=== PATIENT | female | born 1975 | race Caucasian/White ===

== ENCOUNTER 2017-09-27 16:42 | Inpatient (IN) | payer OTHER ==
[~2017-09-27] VITALS: Ht 160 cm; Wt 46.3 kg
--- NOTE | 2017-09-27 16:55 | NUR ---
AAOX3, C/O SOB, STARTED FLU-LIKE SYMPTOMS 5 DAYS AGO NOW C/O SOB. SKIN IS WARM AND DRY. VOO0=080% ON RA. DR JADE AT FOR EVAL.
[2017-09-27] MEDS ORDERED: IPRATROPIUM NEB FS 0.5 MG/2.5 ML AMPUL.NEB ONE (16:57)
[2017-09-27] MEDS ORDERED: ALBUTEROL FS 2.5 MG/3 ML VIAL.NEB ONE (16:57)
[2017-09-27] MEDS ORDERED: ALBUTEROL FS 2.5 MG/3 ML VIAL.NEB NEB ONE (17:00)
[2017-09-27] MEDS ORDERED: IPRATROPIUM NEB FS 0.5 MG/2.5 ML AMPUL.NEB NEB ONE (17:00)
[2017-09-27] MEDS ORDERED: IV NS 0.9% 1,000 ML IV ONE (17:00)
[2017-09-27 17:26] LABS: BASOPHILS % (AUTO) 0.2 % (0.0-2.0); EOSINOPHILS % (AUTO) 0.2 % (0.0-6.0); HEMATOCRIT 29 % (33-45); HEMOGLOBIN 9.7 g/dL (11.5-14.8); LYMPHOCYTES # (AUTO) 1.1 /CMM (0.8-4.8); LYMPHOCYTES % (AUTO) 4.7 % (20.0-44.0); MEAN CORPUSCULAR HEMOGLOBIN 31 PG (26.0-33.0); MEAN CORPUSCULAR HGB CONC 33 g/dl (31.0-36.0); MEAN CORPUSCULAR VOLUME 95 fL (82-100); MONOCYTES # (AUTO) 0.7 /CMM (0.1-1.30); MONOCYTES % (AUTO) 3.2 % (2.0-12.0); NEUTROPHILS # (AUTO) 20.4 /CMM (1.8-8.9); NEUTROPHILS % (AUTO) 91.7 % (43.0-81.0); PLATELET COUNT (AUTO) 681 /CMM (150-450); RDW COEFFICIENT OF VARIATION 15.5 (11.5-15.0); RED BLOOD CELL COUNT(AUTO) 3.11 MIL/uL (4.0-5.2); WHITE BLOOD COUNT (AUTO) 22.3 K/uL (4.3-11.0)
[2017-09-27 17:30] LABS: CALCIUM, SERUM 8.6 mg/dL (8.5-10.1); CREATININE 0.8 mg/dL (0.6-1.3); POTASSIUM 3.5 mmol/L (3.5-5.1)
[2017-09-27 18:16] LABS: BAND % (MANUAL) 7 % (0.0-5.0); LYMPHOCYTES % (MANUAL) 10 % (16-48); MONOCYTES % (MANUAL) 9 % (0-11.0); NEUTROPHILS % (MANUAL) 74 (42-76)
[2017-09-27] MEDS ORDERED: CEFTRIAXONE 1GM BAG (ER ONLY) 50 ML IV ONE ×2 (18:59→19:00)
--- NOTE | 2017-09-27 18:59 | NUR ---
RECEIVED REPORT FROM KATIE BASSETT.
[2017-09-27] MEDS ORDERED: AZITHROMYCIN 500 MG in IV D5W 250 ML IV ONE (19:00)
--- NOTE | 2017-09-27 19:02 | NUR ---
LAB AT BEDSIDE FOR BLOOD CULTURES
--- NOTE | 2017-09-27 19:04 | NUR ---
INFLUENZA SWAB COLLECTED SENT TO LAB
[2017-09-27] MEDS ORDERED: AZITHROMYCIN 500 MG VIAL ONE (19:20)
[2017-09-27] MEDS ORDERED: NORG1TAB22 PO (19:23)
[2017-09-27] MEDS ORDERED: LEVO125T8 PO (19:23)
--- NOTE | 2017-09-27 19:30 | NUR ---
PSYCHIATRIC PAGED, MICAELA CASH ARBORICULTURE INSTRUCTOR
[2017-09-27] MEDS ORDERED: ACETAMINOPHEN 325 MG TABLET ONE (19:35)
--- NOTE | 2017-09-27 19:36 | NUR ---
VERBAL ORDERS PER DR. JADE TO GIVE PT TYLENOL 650MG PO ONE TIME NOW FOR PAIN. PT MEDICATED.
[2017-09-27] MEDS ORDERED: ACETAMINOPHEN 325 MG TABLET PO ONE (20:00)
--- NOTE | 2017-09-27 20:09 | NUR ---
PT ASSIGNED TO [facility] 308-2
--- NOTE | 2017-09-27 20:12 | NUR ---
REPORT GIVEN TO KATIE FELICIANO FOR MS BED 309-2
--- NOTE | 2017-09-27 20:38 | NUR ---
MECHANICAL MAINTENANCE ENGINEER NOTES PT ARRIVED ON TO THE UNIT AT 2037. PT IS AMBULATORY. PT COMPLAINED OF COUGH AND FLU LIKE SYMPTOMS X5 DAYS. PT HAS LEFT HAND #20 IV, INTACT AND PATENT. PT LUNGS SOUND DIMINISHED BILATERALLY. PT IS ALERT AND ORIENTED. PT COMPLAINS OF PAIN FROM COUGHING BUT STATED THAT MOBILE CRANE OPERATOR SHAILESH WANTED FOR HER TO "COUGH IT OUT". NO COMPLAINTS OF SOB. ORIENTED PT TO THE USE OF THE CALL LIGHT. SAFETY PRECAUTIONS IN PLACE. BED IN LOW, LOCKED POSITION, AND CALL LIGHT WITHIN REACH. WILL CONTINUE TO MONITOR.
--- NOTE | 2017-09-27 20:44 | NUR ---
PT TRASNFERRED PER ACLS PROTOCOL.
[2017-09-27 21:00] VITALS: BP 110/80
[2017-09-27] MEDS ORDERED: Z GUARD REMEDY 2 OZ OINT TP PRN (21:00)
[2017-09-27] MEDS ORDERED: MAGNESIUM HYDROXIDE 30 ML UDC PO PRN (21:00)
[2017-09-27] MEDS ORDERED: MAG HYDROX/AL HYDROX/SIMETH 30 ML UDC PO PRN (21:00)
--- NOTE | 2017-09-27 22:00 | NUR ---
RN NOTES PT REQUESTING PRN MORPHINE MG FOR PAIN. WILL ADMINISTER AND CONTINUE TO MONITOR.
[2017-09-27] MEDS: IV NS 0.9% 1,000 ML IV PRN (22:03)
[2017-09-27] MEDS: MORPHINE SULFATE INJ 4 MG/ML DISP.SYRIN IV PRN (22:03)
--- NOTE | 2017-09-28 00:15 | NUR ---
RN NOTES PT COMPLAINING OF CONSTANT COUGH. WILL CALL MD TO FOR ORDERS.
--- NOTE | 2017-09-28 00:27 | NUR ---
RN NOTES RECEIVED ORDER FROM MICAELA CASH: PRN ROBITUSSIN 5ML QHR. WILL ADMINISTER AND CONTINUE TO MONITOR.
[2017-09-28] MEDS: GUAIFENESIN/D-METHORPHAN HB 5 ML UDC PO PRN ×5 (00:36→21:42)
--- NOTE | 2017-09-28 06:05 | NUR ---
RN NOTES PT REQUESTING PRN MORPHINE MG FOR PAIN. WILL ADMINISTER AND CONTINUE TO MONITOR.
[2017-09-28] MEDS: MORPHINE SULFATE INJ 4 MG/ML DISP.SYRIN IV PRN ×3 (06:10→22:59)
--- NOTE | 2017-09-28 06:33 | NUR ---
RN CLOSING NOTES PT AWAKE AND RESTING IN BED. PT COMPLAINS OF SORE THROAT FROM COUGHING. PT HAS LEFT HAND #20 IV, INTACT AND PATENT, AND RUNNING NS @75ML/HR. NO COMPLAINTS OF SOB. SAFETY PRECAUTIONS IN PLACE. BED IN LOW, LOCKED POSITION, AND CALL LIGHT WITHIN REACH. ALL PT NEEDS MET. WILL ENDORSE TO DAY SHIFT NURSE FOR CONTINUITY OF CARE.
--- NOTE | 2017-09-28 07:30 | NUR ---
RN OPENING NOTES RECEIVED PT. IN BED A&OX4. BREATHING EVENLY ON ROOM AIR. PT. HAS A COUGH. NO S/S OF ACUTE DISTRESS. IV FLUIDS RUNNING AT 75 ML/HR ON LEFT HAND GAUGE 20. BED IS IN LOWEST AND LOCKED POSITION. 2 SIDE RAILS UP, AND INSTRUCTED PT. TO USE CALL LIGHT FOR ASSISTANCE. ALL NEEDS MET. WILL CONTINUE TO ASSESS AND MONITOR.
[2017-09-28 08:00] VITALS: BP 118/73
[2017-09-28] MEDS: LEVOTHYROXINE SODIUM 125 MCG TABLET PO SCH (08:00)
[2017-09-28] MEDS ORDERED: NORGESTIMATE ETHINYL ESTRADIOL PO SCH (09:00)
[2017-09-28] MEDS: ACETAMINOPHEN 325 MG TABLET PO PRN ×2 (09:28→16:59)
[2017-09-28] MEDS ORDERED: CYCLOBENZAPRINE 10 MG TABLET PO ONE (09:30)
[2017-09-28] MEDS ORDERED: ALBUTEROL FS 2.5 MG/0.5 ML VIAL.NEB NEB PRN (09:30)
[2017-09-28] MEDS: ALBUTEROL FS 2.5 MG/0.5 ML VIAL.NEB NEB SCH ×4 (09:36→19:39)
[2017-09-28 11:40] LABS: BASOPHILS % (AUTO) 0.3 % (0.0-2.0); EOSINOPHILS # (AUTO) 0.1 /CMM (0.0-0.7); EOSINOPHILS % (AUTO) 1.1 % (0.0-6.0); HEMATOCRIT 27 % (33-45); HEMOGLOBIN 9.1 g/dL (11.5-14.8); LYMPHOCYTES # (AUTO) 1.2 /CMM (0.8-4.8); LYMPHOCYTES % (AUTO) 8.8 % (20.0-44.0); MEAN CORPUSCULAR HEMOGLOBIN 32 PG (26.0-33.0); MEAN CORPUSCULAR HGB CONC 33 g/dl (31.0-36.0); MEAN CORPUSCULAR VOLUME 96 fL (82-100); MONOCYTES % (AUTO) 7.7 % (2.0-12.0); NEUTROPHILS # (AUTO) 11.1 /CMM (1.8-8.9); NEUTROPHILS % (AUTO) 82.1 % (43.0-81.0); PLATELET COUNT (AUTO) 590 /CMM (150-450); RDW COEFFICIENT OF VARIATION 15.4 (11.5-15.0); RED BLOOD CELL COUNT(AUTO) 2.86 MIL/uL (4.0-5.2); WHITE BLOOD COUNT (AUTO) 13.5 K/uL (4.3-11.0)
[2017-09-28 11:51] LABS: CALCIUM, SERUM 7.8 mg/dL (8.5-10.1); CREATININE 0.6 mg/dL (0.6-1.3); MAGNESIUM 1.7 mg/dL (1.8-2.4); PHOSPHORUS 2.5 mg/dL (2.5-4.9); POTASSIUM 3.2 mmol/L (3.5-5.1)
[2017-09-28 12:00] LABS: THYROID STIMULATING HORMONE 15.168 uIU/mL (0.358-3.74)
[2017-09-28] MEDS: IV NS 0.9% 1,000 ML IV PRN (13:19)
[2017-09-28 16:00] VITALS: BP 116/79
--- NOTE | 2017-09-28 19:07 | NUR ---
RN CLOSING NOTES PT. IS LYING IN BED A&OX4. BREATHING EVENLY ON ROOM AIR. PT. HAS A COUGH. NO S/S OF ACUTE DISTRESS. IV FLUIDS RUNNING AT 75 ML/HR ON LEFT HAND GAUGE 20. BED IS IN LOWEST AND LOCKED POSITION. 2 SIDE RAILS UP, AND INSTRUCTED PT. TO USE CALL LIGHT FOR ASSISTANCE. ALL NEEDS MET. WILL ENDORSE REPORT TO NURSE.
--- NOTE | 2017-09-28 19:15 | NUR ---
RN NOTES CALLED PHARMACY AND NOTIFIED PT.'S MAGNESIUM WAS 1.7, AND POTASSIUM 3.2.
[2017-09-28] MEDS: CEFTRIAXONE 1 G in IV D5W 50 ML IV SCH (19:48)
--- NOTE | 2017-09-28 19:58 | NUR ---
MS/RN RECEIVE PATIENT IN BED APPEAR SLEEPING, APPEAR COMFORTABLE, NO SIGNS OF DISTRESS NOTED, CALL LIGHT IN WILL MONITOR.
[2017-09-28 20:00] VITALS: BP 128/71
[2017-09-28] MEDS ORDERED: POTASSIUM CHLORIDE 20 MEQ TAB.PRT.SR PO ONE (20:00)
[2017-09-28] MEDS: Magnesium 1GM/D5W 100ML PREMIX 100 ML IV SCH ×2 (20:26→23:57)
--- NOTE | 2017-09-28 21:44 | NUR ---
MS/RN PATIENT IS COUGHING, ROBITUSSIN 5 ML WAS GIVEN ORDERED. WILL MONITOR.
[2017-09-28] MEDS: AZITHROMYCIN 500 MG in IV D5W 250 ML IV SCH (22:05)
[2017-09-28] MEDS: ONDANSETRON HCL/PF 4 MG/2 ML VIAL IVP PRN (22:58)
--- NOTE | 2017-09-28 23:00 | NUR ---
MS/RN PATIENT IS SLEEPING AT THIS TIME, AROUSABLE, APPEAR COMFORTABLE, NO DISTRESS NOTED, CALL LIGHT IN REACH. WILL CONTINUE TO MONITOR.
[2017-09-29 05:20] LABS: APPEARANCE,URINE CLEAR (CLEAR); BILIRUBIN,URINE NEGATIVE (NEGATIVE); BLOOD, URINE NEGATIVE Ery/uL (NEGATIVE); COLOR,URINE YELLOW (YELLOW); KETONES,URINE NEGATIVE (NEGATIVE); LEUKOCYTE ESTERASE ,URINE NEGATIVE (NEGATIVE); NITRITE, URINE NEGATIVE (NEGATIVE); PH,URINE 6.5 (5.0-8.0); PROTEIN,URINE NEGATIVE (NEGATIVE); UGLUCOSE 1+ mg/dL (NEGATIVE); UROBILINOGEN,URINE 0.2 EU/dL (0.2)
[2017-09-29 05:35] LABS: BACTERIA,URINE None seen /HPF (None Seen); RBC,URINE NONE SEEN /HPF (0-2); SQUAMOUS EPITHELIAL CELL,UR Few /HPF (None Seen); WBC,URINE 0-2 /HPF (0-3)
[2017-09-29] MEDS: MORPHINE SULFATE INJ 4 MG/ML DISP.SYRIN IV PRN (06:08)
--- NOTE | 2017-09-29 06:35 | NUR ---
MS/RN PATIENT IS SLEEPING AT THIS TIME, EASILY AROUSABLE, APPEAR COMFORTABLE, NO DISTRESS NOTED. ALL NEEDS ATTENDED AT THIS TIME. WILL CONTINUE TO MONITOR.
--- NOTE | 2017-09-29 07:41 | NUR ---
MS/RN OPENING NOTE PATIENT IN BED IN STABLE CONDITION. A/O X 3. NO SIGNS OF ACUTE DISTRESS. COMPLAIN OF GENERALIZED BODY PAIN, MORPHINE IVP ADMINISTER AT 0612. ALL NEEDS ATTENDED TO. CALL LIGHT WITHIN REACH. WILL CONTINUE TO MONITOR TO ENSURE SAFETY.
[2017-09-29] MEDS: HYDROCODONE/APAP 5/325MG 1 EACH TABLET PO PRN ×2 (07:58→23:37)
[2017-09-29] MEDS: LEVOTHYROXINE SODIUM 125 MCG TABLET PO SCH (07:58)
[2017-09-29 08:00] VITALS: BP 128/89
[2017-09-29] MEDS: ALBUTEROL FS 2.5 MG/0.5 ML VIAL.NEB NEB SCH ×4 (08:13→20:12)
[2017-09-29 09:08] LABS: BASOPHILS # (AUTO) 0.1 /CMM (0.0-0.2); EOSINOPHILS # (AUTO) 0.1 /CMM (0.0-0.7); EOSINOPHILS % (AUTO) 1.1 % (0.0-6.0); HEMATOCRIT 29 % (33-45); HEMOGLOBIN 9.5 g/dL (11.5-14.8); LYMPHOCYTES # (AUTO) 1.6 /CMM (0.8-4.8); LYMPHOCYTES % (AUTO) 15.5 % (20.0-44.0); MEAN CORPUSCULAR HEMOGLOBIN 32 PG (26.0-33.0); MEAN CORPUSCULAR HGB CONC 33 g/dl (31.0-36.0); MEAN CORPUSCULAR VOLUME 96 fL (82-100); MONOCYTES # (AUTO) 0.9 /CMM (0.1-1.30); MONOCYTES % (AUTO) 8.2 % (2.0-12.0); NEUTROPHILS # (AUTO) 7.7 /CMM (1.8-8.9); NEUTROPHILS % (AUTO) 74.2 % (43.0-81.0); PLATELET COUNT (AUTO) 660 /CMM (150-450); RDW COEFFICIENT OF VARIATION 15.8 (11.5-15.0); RED BLOOD CELL COUNT(AUTO) 3.01 MIL/uL (4.0-5.2); WHITE BLOOD COUNT (AUTO) 10.4 K/uL (4.3-11.0)
[2017-09-29 09:13] LABS: CALCIUM, SERUM 7.5 mg/dL (8.5-10.1); CREATININE 0.7 mg/dL (0.6-1.3); MAGNESIUM 1.7 mg/dL (1.8-2.4); PHOSPHORUS 2.6 mg/dL (2.5-4.9); POTASSIUM 3.7 mmol/L (3.5-5.1)
[2017-09-29] MEDS: methylPREDNISolone SOD SUCC 40 MG/ML VIAL IV SCH ×3 (11:43→17:31)
[2017-09-29] MEDS: ACETYLCYSTEINE 10% SOLN 400 MG/4 ML VIAL NEB SCH ×2 (11:43→16:11)
[2017-09-29] MEDS: IV NS 0.9% 1,000 ML IV PRN (11:54)
[2017-09-29] MEDS: CYCLOBENZAPRINE 10 MG TABLET PO PRN (12:27)
[2017-09-29 16:00] VITALS: BP 111/63
[2017-09-29] MEDS: LACTOBACILLUS RHAMNOSUS GG 1 EACH CAP.SPRINK PO SCH (17:30)
--- NOTE | 2017-09-29 18:34 | NUR ---
MS/RN CLOSING NOTE PATIENT IN BED IN STABLE CONDITION. A/O X 4. NO SIGNS OF ACUTE DISTRESS. NO COMPLAIN OF PAIN OR DISCOMFORT. ALL NEEDS ATTENDED TO. CALL LIGHT WITHIN REACH. WILL ENDORSE TO NEXT SHIFT FOR CONTINUITY OF CARE.
[2017-09-29] MEDS: Magnesium 1GM/D5W 100ML PREMIX 100 ML IV SCH ×2 (18:42→20:18)
--- NOTE | 2017-09-29 19:15 | NUR ---
RN OPENING NOTE RECEIVED REPORT FROM AM SHIFT NURSE, RECEIVED PATIENT IN BED IN STABLE CONDITION. ASLEEP BUT EASILY AROUSABLE. A/O X 4. NOTED WITH NO SOB, IN NO ACUTE DISTRESS. NO COMPLAIN OF PAIN. ALL NEEDS ATTENDED TO. CALL LIGHT PLACED WITHIN EASY REACH. WILL CONTINUE TO MONITOR.
[2017-09-29 20:39] VITALS: BP 126/74
[2017-09-29] MEDS: CEFTRIAXONE 1 G in IV D5W 50 ML IV SCH (21:39)
[2017-09-29] MEDS: AZITHROMYCIN 500 MG in IV D5W 250 ML IV SCH (22:52)
[2017-09-29] MEDS: GUAIFENESIN/D-METHORPHAN HB 5 ML UDC PO PRN (23:54)
[2017-09-30] MEDS: ACETYLCYSTEINE 10% SOLN 400 MG/4 ML VIAL NEB SCH ×5 (00:13→23:30)
[2017-09-30] MEDS: IV NS 0.9% 1,000 ML IV PRN (05:21)
[2017-09-30] MEDS: ONDANSETRON HCL/PF 4 MG/2 ML VIAL IVP PRN (06:41)
[2017-09-30] MEDS: CYCLOBENZAPRINE 10 MG TABLET PO PRN (06:41)
[2017-09-30] MEDS: LEVOTHYROXINE SODIUM 125 MCG TABLET PO SCH (06:41)
[2017-09-30] MEDS: ALBUTEROL FS 2.5 MG/0.5 ML VIAL.NEB NEB SCH ×4 (07:22→20:09)
--- NOTE | 2017-09-30 07:30 | NUR ---
RN CLOSING NOTE PATIENT IN BED, ASLEEP BUT EASILY AROUSABLE, NO SOB NOTED, BREATHING EVEN AND UNLABORED, NO C/O PAIN AT THIS TIME AND IN NO ACUTE DISTRESS. ALL PATIENT'S NEEDS ATTENDED TO. CONTINUES TO RECEIVE O2 VIA NC @ 2LPM. RECEIVING IVF ORDERED VIA IV PERIPHERAL LINE ON LFA, INFUSING WELL. PATIENT'S BED IN LOW POSITION, LOCKED IN PLACE. WILL ENDORSE TO AM SHIFT NURSE FOR CONTINUITY OF CARE.
--- NOTE | 2017-09-30 07:40 | NUR ---
MS RN OPENING NOTE: PATIENT RESTING IN BED, NO ACUTE DISTRESS NOTED. BREATHING EVEN AND UNLABORED, NO SOB NOTED. OXYGEN VIA MASK IN PLACE AT 2 LPM. IV TO LFA IN PLACE. BED LOCKED AND IN LOWEST POSITION, CALL LIGHT IN REACH. SAFETY MEASURES IN PLACE, WILL CONTINUE TO MONITOR
[2017-09-30 08:00] VITALS: BP 140/82
[2017-09-30 08:43] LABS: CALCIUM, SERUM 8.3 mg/dL (8.5-10.1); CREATININE 0.6 mg/dL (0.6-1.3); MAGNESIUM 2.2 mg/dL (1.8-2.4); PHOSPHORUS 2.9 mg/dL (2.5-4.9); POTASSIUM 4.4 mmol/L (3.5-5.1)
[2017-09-30 08:44] LABS: BASOPHILS # (AUTO) 0.4 /CMM (0.0-0.2); BASOPHILS % (AUTO) 2.6 % (0.0-2.0); HEMATOCRIT 31 % (33-45); HEMOGLOBIN 10.1 g/dL (11.5-14.8); LYMPHOCYTES # (AUTO) 0.9 /CMM (0.8-4.8); LYMPHOCYTES % (AUTO) 5.9 % (20.0-44.0); MEAN CORPUSCULAR HEMOGLOBIN 32 PG (26.0-33.0); MEAN CORPUSCULAR HGB CONC 33 g/dl (31.0-36.0); MEAN CORPUSCULAR VOLUME 96 fL (82-100); MONOCYTES # (AUTO) 0.5 /CMM (0.1-1.30); MONOCYTES % (AUTO) 3.3 % (2.0-12.0); NEUTROPHILS # (AUTO) 12.7 /CMM (1.8-8.9); NEUTROPHILS % (AUTO) 88.2 % (43.0-81.0); PLATELET COUNT (AUTO) 808 /CMM (150-450); RDW COEFFICIENT OF VARIATION 15.3 (11.5-15.0); RED BLOOD CELL COUNT(AUTO) 3.18 MIL/uL (4.0-5.2); WHITE BLOOD COUNT (AUTO) 14.4 K/uL (4.3-11.0)
[2017-09-30] MEDS: LACTOBACILLUS RHAMNOSUS GG 1 EACH CAP.SPRINK PO SCH ×2 (08:50→16:58)
[2017-09-30] MEDS: methylPREDNISolone SOD SUCC 40 MG/ML VIAL IV SCH ×3 (08:50→16:58)
[2017-09-30 09:14] LABS: BAND % (MANUAL) 3 % (0.0-5.0); LYMPHOCYTES % (MANUAL) 6 % (16-48); MONOCYTES % (MANUAL) 6 % (0-11.0); NEUTROPHILS % (MANUAL) 85 (42-76)
[2017-09-30] MEDS: GUAIFENESIN/D-METHORPHAN HB 5 ML UDC PO PRN (13:36)
[2017-09-30 16:00] VITALS: BP 118/72
[2017-09-30] MEDS: HYDROCODONE/APAP 5/325MG 1 EACH TABLET PO PRN (18:51)
--- NOTE | 2017-09-30 19:29 | NUR ---
MS RN CLOSING NOTE: PATIENT RESTING IN BED, NO ACUTE DISTRESS NOTED. BREATHING EVEN AND UNLABORED, NO SOB NOTED. OXYGEN VIA MASK IN PLACE AT 2 LPM. IV TO LFA IN PLACE. BED LOCKED AND IN LOWEST POSITION, CALL LIGHT IN REACH. SAFETY MEASURES IN PLACE, WILL CONTINUE TO MONITOR AND ENDORSE TO NEXT SHIFT FOR CONTINUITY OF CARE
--- NOTE | 2017-09-30 19:30 | NUR ---
RN NOTE RECEIVED PT IN BED, ALERT AND ORIENTED X 4, VERBALLY RESPONSIVE, NO SOB NOTED, BREATHING EVEN AND UNLABORED, CONTINUES TO RECEIVE O2 VIA NC @2LPM. PT ALSO RECEIVING IVF ORDERED VIA [facility] G22 IV PERIPHERAL LINE, INFUSING WELL. ALL PATIENT'S NEEDS ATTENDED TO AT THIS TIME. BED PLACED IN LOW POSITION AND LOCKED IN PLACE. WILL CONTINUE TO MONITOR.
[2017-09-30 20:00] VITALS: BP 129/84
[2017-09-30] MEDS: CEFTRIAXONE 1 G in IV D5W 50 ML IV SCH (20:45)
[2017-09-30] MEDS: AZITHROMYCIN 500 MG in IV D5W 250 ML IV SCH (21:30)
[2017-10-01] MEDS: CYCLOBENZAPRINE 10 MG TABLET PO PRN ×2 (00:22→20:22)
--- NOTE | 2017-10-01 01:38 | NUR ---
RN NOTE NOTED IV PERIPHERAL LINE ON LFA G22 DISLODGED. STARTED A NEW IV PERIPHERAL LINE ON PATIENT'S LFA G24, PATIENT TOLERATED PROCEDURE WELL. IV LINE FLUSHED WITH NS, PATENT AND INTACT. INFUSING WELL WITH IVF ORDERED. WILL CONTINUE TO MONITOR.
[2017-10-01] MEDS: IV NS 0.9% 1,000 ML IV PRN ×2 (03:18→16:10)
[2017-10-01] MEDS: GUAIFENESIN/D-METHORPHAN HB 5 ML UDC PO PRN (04:20)
--- NOTE | 2017-10-01 06:35 | NUR ---
RN CLOSING NOTE PATIENT IN BED, ASLEEP BUT EASILY AROUSABLE. ALERT AND VERBALLY RESPONSIVE. NOTED PATIENT WITH NO SOB, BREATHING EVEN AND UNLABORED, IN NO ACUTE DISTRESS AT THIS TIME. PT CONTINUES TO RECEIVE O2 VIA NC @ 2LPM. IVF INFUSING ORDERED VIA IV PERIPHERAL LINE G24 ON LFA. ALL PATIENT'S NEEDS ATTENDED TO AT THIS TIME. WILL \ENDORSE TO AM SHIFT NURSE FOR CONTINUITY OF CARE.
[2017-10-01] MEDS: ACETYLCYSTEINE 10% SOLN 400 MG/4 ML VIAL NEB SCH ×3 (07:35→23:30)
--- NOTE | 2017-10-01 07:39 | NUR ---
MS/RN OPENING NOTE PATIENT ALERT AND ORIENTED X4. RESPIRATION REGULAR AND UNLABORED. ON OXYGEN AT 2L/MIN VIA NC. DENIES SOB, PAIN AT THIS TIME. IN NO APPARENT DISTRESS. LFA G 24 PATENT AND IV INFUSING WITH NO S/S INFILTRATION. BED LOW AND LOCKED. SIDE RAILS UP X3. CALL LIGHT WITHIN REACH. WILL CONTINUE TO MONITOR.
[2017-10-01 08:00] VITALS: BP 150/95
[2017-10-01] MEDS: ALBUTEROL FS 2.5 MG/0.5 ML VIAL.NEB NEB SCH ×4 (08:06→19:51)
[2017-10-01] MEDS: methylPREDNISolone SOD SUCC 40 MG/ML VIAL IV SCH ×3 (08:55→16:10)
[2017-10-01] MEDS: LACTOBACILLUS RHAMNOSUS GG 1 EACH CAP.SPRINK PO SCH ×2 (08:55→16:09)
[2017-10-01] MEDS: LEVOTHYROXINE SODIUM 125 MCG TABLET PO SCH (08:55)
[2017-10-01 09:11] LABS: BASOPHILS # (AUTO) 0.2 /CMM (0.0-0.2); BASOPHILS % (AUTO) 1.3 % (0.0-2.0); EOSINOPHILS % (AUTO) 0.1 % (0.0-6.0); HEMATOCRIT 28 % (33-45); HEMOGLOBIN 9.2 g/dL (11.5-14.8); LYMPHOCYTES # (AUTO) 1.9 /CMM (0.8-4.8); LYMPHOCYTES % (AUTO) 13.2 % (20.0-44.0); MEAN CORPUSCULAR HEMOGLOBIN 32 PG (26.0-33.0); MEAN CORPUSCULAR HGB CONC 33 g/dl (31.0-36.0); MEAN CORPUSCULAR VOLUME 95 fL (82-100); MONOCYTES # (AUTO) 0.7 /CMM (0.1-1.30); MONOCYTES % (AUTO) 5.1 % (2.0-12.0); NEUTROPHILS # (AUTO) 11.4 /CMM (1.8-8.9); NEUTROPHILS % (AUTO) 80.3 % (43.0-81.0); PLATELET COUNT (AUTO) 826 /CMM (150-450); RDW COEFFICIENT OF VARIATION 15.9 (11.5-15.0); RED BLOOD CELL COUNT(AUTO) 2.91 MIL/uL (4.0-5.2); WHITE BLOOD COUNT (AUTO) 14.2 K/uL (4.3-11.0)
[2017-10-01 09:24] LABS: CALCIUM, SERUM 7.9 mg/dL (8.5-10.1); CREATININE 0.6 mg/dL (0.6-1.3); MAGNESIUM 1.8 mg/dL (1.8-2.4); PHOSPHORUS 2.8 mg/dL (2.5-4.9)
[2017-10-01] MEDS: ACETAMINOPHEN 325 MG TABLET PO PRN (13:00)
[2017-10-01 16:00] VITALS: BP 132/77
--- NOTE | 2017-10-01 16:30 | NUR ---
MS/RN NOTE PER PATIENT SHE DOES NOT TAKE TAKE ANYMORE HOME MEDICATION TRINESSA AND SHE DOES NOT WANT TO TAKE IT HERE. PHARM MADE AWARE.
--- NOTE | 2017-10-01 17:50 | NUR ---
MS/RN CLOSING NOTE PATIENT ALERT AND ORIENTED X4. DENIES SOB, PAIN AT THIS TIME. RESPIRATION REGULAR AND UNLABORED. IN NO APPARENT DISTRESS. LFA G 24 PATENT AND IV INFUSING WITH NO S/S INFILTRATION. BED LOW AND LOCKED. SIDE RAILS X2. CALL LIGHT WITHIN REACH. WILL ENDORSE TO NIGH SHIFT.
--- NOTE | 2017-10-01 19:25 | NUR ---
MS RN OPENING NOTES RECEIVED PATIENT IN BED, AWAKE, A&OX4. RESPIRATIONS EVEN AND UNLABORED, DENIES SOB AT THIS TIME. NO SIGNS OF APPARENT DISTRESS OR DISCOMFORT NOTED AT THIS TIME. LFA IV 24 G, PATENT AND INTACT WITH FLUIDS RUNNING AT 75ML/HR. PATIENT KEPT CLEAN AND COMFORTABLE. SAFETY MEASURES IN PLACE: BED IN LOW LOCKED POSITION, SIDE RAILS UPX2, CALL LIGHT WITHIN REACH. WILL CONTINUE TO MONITOR.
[2017-10-01 20:00] VITALS: BP 143/94
[2017-10-01] MEDS: ONDANSETRON HCL/PF 4 MG/2 ML VIAL IVP PRN (20:21)
[2017-10-01] MEDS: CEFTRIAXONE 1 G in IV D5W 50 ML IV SCH (20:25)
[2017-10-01] MEDS: AZITHROMYCIN 500 MG in IV D5W 250 ML IV SCH (21:26)
[2017-10-01] MEDS: HYDROCODONE/APAP 5/325MG 1 EACH TABLET PO PRN (22:23)
--- NOTE | 2017-10-02 07:27 | NUR ---
MS/RN OPENING NOTE PATIENT IN BED. ALERT AND ORIENTED X4. DENIES SOB, DENIES PAIN AT THIS TIME. RESPIRATION REGULAR AND UNLABORED. REMAINS OF OXYGEN AT 2L/MIN VIA NC. IN NO APPARENT DISTRESS. LFA G 24 PATENT AND FLUIDS INFUSING WITH NO S/S INFILTRATION. BED LOW AND LOCKED. SIDE RAILS UP X2. CALL LIGHT WITHIN REACH. WILL CONTINUE TO MONITOR.
--- NOTE | 2017-10-02 07:30 | NUR ---
MS RN CLOSING NOTES PATIENT IN BED, AWAKE, A&OX4. RESPIRATIONS EVEN AND UNLABORED, DENIES SOB AT THIS TIME. NO SIGNS OF APPARENT DISTRESS OR DISCOMFORT NOTED AT THIS TIME. LFA IV 24 G, PATENT AND INTACT WITH FLUIDS RUNNING AT 75ML/HR. PATIENT KEPT CLEAN AND COMFORTABLE. SAFETY MEASURES IN PLACE: BED IN LOW LOCKED POSITION, SIDE RAILS UPX2, CALL LIGHT WITHIN REACH. WILL ENDORSE TO AM NURSE FOR CONTINUATION OF CARE.
[2017-10-02] MEDS: ACETYLCYSTEINE 10% SOLN 400 MG/4 ML VIAL NEB SCH ×3 (07:35→23:30)
[2017-10-02 08:00] VITALS: BP 174/92
[2017-10-02] MEDS: methylPREDNISolone SOD SUCC 40 MG/ML VIAL IV SCH ×3 (08:18→17:21)
[2017-10-02] MEDS: LACTOBACILLUS RHAMNOSUS GG 1 EACH CAP.SPRINK PO SCH ×2 (08:18→17:21)
[2017-10-02] MEDS: LEVOTHYROXINE SODIUM 125 MCG TABLET PO SCH (08:18)
[2017-10-02] MEDS: IV NS 0.9% 1,000 ML IV PRN (08:27)
[2017-10-02] MEDS: ALBUTEROL FS 2.5 MG/0.5 ML VIAL.NEB NEB SCH ×4 (09:14→19:33)
[2017-10-02] MEDS: MORPHINE SULFATE INJ 4 MG/ML DISP.SYRIN IV PRN (10:24)
[2017-10-02] MEDS: CYCLOBENZAPRINE 10 MG TABLET PO PRN (12:37)
--- NOTE | 2017-10-02 15:44 | NUR ---
MS/RN OPENING NOTE RECEIVED TEL NEW ORDER FROM DR DAVIS. THE ORDERS READ BACK, VERIFIED. NOTED AND CARRIED OUT.
[2017-10-02 16:00] VITALS: BP 158/85
[2017-10-02] MEDS: BOOST PLUS FOOD-VANILLA 237 ML BOX PO SCH (18:00)
--- NOTE | 2017-10-02 18:11 | NUR ---
MS/RN CLOSING NOTE PATIENT ALERT AND ORIENTED X4. RESPIRATION REGULAR AND UNLABORED. DENIES SOB, PAIN AT THIS TIME. THE PATIENT IN NO APPARENT DISTRESS. THE PATIENT REFUSED IV FLUIDS DURING THE SHIFT DESPITE EXPLAINING RISKS AND BENEFITS MULTIPLE TIME. THE PATIENT IS GIVEN VERBAL CUES TO KEEP SAFETY AWARENESS HIGH. GOOD AND GENTLE SKIN CARE RENDERED. KEPT CLEAN AND COMFORTABLE. ALL NEEDS ATTENDED AND ANTICIPATED. BED LOW AND LOCKED. SIDE RAILS UP X2. CALL LIGHT WITHIN REACH. WILL ENDORSE TO GENERAL PRODUCTION LABORER.
--- NOTE | 2017-10-02 18:40 | NUR ---
MS/RN NOTE PATIENT HAS COMPLAIN OF ANXIETY. DR SUSAN DELGADO MADE AWARE WITH NEW ORDER. THE ORDER READ BACK, VERIFIED. NOTED AND CARRIED OUT.
--- NOTE | 2017-10-02 19:30 | NUR ---
MS RN OPENING NOTES: PATIENT IN BED, AOX4, ON O2 AT 2 LPM VIA NC, BREATHING EVEN AND UNLABORED. APPEARS ANXIOUS, STATES THAT SHE FEELS "JITTERY", AND IS ASKING FOR ATIVAN. PATIENT DOES NOT HAVE PIV LINE AT THIS TIME, EXPLAINED TO HER THAT NEW IV LINE WILL BE PLACED FOR HER IV FLUIDS AND IV ATB. PROVIDED FOR COMFORT AND SAFETY. BED IN LOWEST AND LOCKED POSITION, SIDERAILS UP X 3, CALL LIGHT WITHIN REACH. WILL CONT TO MONITOR.
[2017-10-02 20:00] VITALS: BP 159/89
[2017-10-02] MEDS: LORAZEPAM 1 MG TABLET PO PRN (20:33)
--- NOTE | 2017-10-02 20:33 | NUR ---
RN NOTES: ADMINISTERED ATIVAN 1 MG PO FOR ANXIETY. WILL CONT TO MONITOR FOR SAFETY.
--- NOTE | 2017-10-02 21:14 | NUR ---
RN NOTES: ATTEMPTED TO REINSERT NEW IV LINE ON PATIENT X 4, HOWEVER, UNSUCCESSFUL. CALLED [employer], ED, TO ASSIST. UNABLE TO GIVE IV MEDS AT THIS TIME.
--- NOTE | 2017-10-02 22:50 | NUR ---
RN NOTES: [employer], ED, REINSERTED NEW IV LINE OVER LEFT EXTERNAL JUGULAR VEIN, G 20, WITH GOOD BLOOD RETURN. CONTINUED IV FLUIDS AND IV ATB.
[2017-10-02] MEDS: CEFTRIAXONE 1 G in IV D5W 50 ML IV SCH (22:51)
[2017-10-02] MEDS: AZITHROMYCIN 500 MG in IV D5W 250 ML IV SCH (23:50)
[2017-10-02] MEDS: ACETAMINOPHEN 325 MG TABLET PO PRN (23:50)
[2017-10-03] MEDS: LEVOTHYROXINE SODIUM 125 MCG TABLET PO SCH (04:59)
[2017-10-03 05:00] VITALS: BP 158/83
--- NOTE | 2017-10-03 05:00 | NUR ---
RN NOTES: PATIENT ASKED FOR HER LEVOTHYROXINE AT THIS TIME, STATING SHE DRINKS IT ACB, AN HOUR BEFORE ANY FOOD OR MEDICATION. LEVOTHYROXINE PO GIVEN.
--- NOTE | 2017-10-03 06:51 | NUR ---
MS RN CLOSING NOTES: PATIENT IN BED, AOX4, ON ROOM AIR AT THIS TIME, BREATHING EVEN AND UNLABORED. APPEARS CALM AND IN NO DISTRESS. PIV OVER L EXTERNAL JUGULAR VEIN INTACT AND PATENT TO FLUSH. PATIENT REQUESTED FOR TIME OFF THE IV FLUIDS FOR NOW. DUE MEDS GIVEN. PROVIDED FOR COMFORT AND SAFETY. BED IN LOWEST AND LOCKED POSITION,SIDERAILS UP X 2, CALL LIGHT WITHIN REACH. WILL ENDORSE TO AM RN FOR [place].
[2017-10-03] MEDS: ACETYLCYSTEINE 10% SOLN 400 MG/4 ML VIAL NEB SCH ×3 (07:35→23:00)
[2017-10-03] MEDS: ALBUTEROL FS 2.5 MG/0.5 ML VIAL.NEB NEB SCH ×4 (07:41→19:11)
--- NOTE | 2017-10-03 07:55 | NUR ---
RN OPENING NOTES RECEIVED PT. IN BED A&OX4. BREATHING UNLABORED, AND EVENLY ON ROOM AIR. PT. RECEIVED BREATHING TREATMENT AT BEDSIDE. NO S/S OF ACUTE DISTRESS. IV FLUIDS AT BEDSIDE. IV ACCESS IS ON THE LEFT EXTERNAL JUGULAR VEIN. BED IS IN LOWEST, AND LOCKED POSITION. 2 SIDE RAILS UP, AND INSTRUCTED PT. TO USE CALL LIGHT FOR ASSISTANCE. ALL NEEDS MET. WILL CONTINUE TO ASSESS AND MONITOR.
[2017-10-03 08:00] VITALS: BP 179/95
[2017-10-03] MEDS: BOOST PLUS FOOD-VANILLA 237 ML BOX PO SCH ×3 (08:53→18:15)
[2017-10-03] MEDS: MULTIVITAMINS,THERAGRAN 1 UDTAB TABLET PO SCH (08:53)
[2017-10-03] MEDS: LACTOBACILLUS RHAMNOSUS GG 1 EACH CAP.SPRINK PO SCH ×2 (08:53→17:07)
[2017-10-03] MEDS: methylPREDNISolone SOD SUCC 40 MG/ML VIAL IV SCH ×3 (08:53→17:07)
[2017-10-03] MEDS: LORAZEPAM 1 MG TABLET PO PRN ×2 (09:20→19:51)
--- NOTE | 2017-10-03 11:50 | NUR ---
PT REFUSED HHN TX AT THIS TIME. NO SOB/RESP DISTRESS NOTED. NOTIFIED KATIE PATEL. WILL CONTINUE TO MONITOR PT.
[2017-10-03 16:00] VITALS: BP 153/92
--- NOTE | 2017-10-03 18:00 | NUR ---
RN NOTES PT. WAS SEEN AND EXAMINED BY DR. DAVIS, ORDERS WERE GIVEN TO DISCONTINUE IV FLUIDS.
--- NOTE | 2017-10-03 19:12 | NUR ---
RN CLOSING NOTES PT. IN BED A&OX4. BREATHING UNLABORED, AND EVENLY ON ROOM AIR. NO S/S OF ACUTE DISTRESS. IV FLUIDS AT BEDSIDE. IV ACCESS IS ON THE LEFT EXTERNAL JUGULAR VEIN. IV FLUIDS DISCONTINUED. BED IS IN LOWEST, AND LOCKED POSITION. 2 SIDE RAILS UP, AND INSTRUCTED PT. TO USE CALL LIGHT FOR ASSISTANCE. ALL NEEDS MET. WILL ENDORSE REPORT TO NURSE.
--- NOTE | 2017-10-03 19:35 | NUR ---
MS RN OPENING NOTES RECEIVED PT IN BED AWAKE, ALERT, VERBALLY RESPONSIVE, ON ROOM AIR, RESPIRATIONS EVEN, UNLABORED, NO APPARENT DISTRESS NOTED. DENIES ANY PAIN OR DISCOMFORT AT THIS TIME. IV SITE LT EJ INTACT, PATENT. CALL LIGHT WITHIN REACH. BED LOCKED IN LOWEST POSITION. ATTENDED ALL NEEDS. WILL CONTINUE TO MONITOR ACCORDINGLY.
[2017-10-03] MEDS: CEFTRIAXONE 1 G in IV D5W 50 ML IV SCH (19:51)
[2017-10-03 20:00] VITALS: BP 140/85
[2017-10-03] MEDS: AZITHROMYCIN 500 MG in IV D5W 250 ML IV SCH (21:16)
[2017-10-03] MEDS: HYDROCODONE/APAP 5/325MG 1 EACH TABLET PO PRN (21:56)
[2017-10-03 22:00] VITALS: BP 140/85
[2017-10-03] MEDS ORDERED: ACETYLCYSTEINE 20% SOLN 800 MG/4 ML VIAL ONE (22:56)
[2017-10-04 06:32] LABS: BASOPHILS # (AUTO) 0.1 /CMM (0.0-0.2); EOSINOPHILS % (AUTO) 0.1 % (0.0-6.0); HEMATOCRIT 33 % (33-45); HEMOGLOBIN 10.8 g/dL (11.5-14.8); LYMPHOCYTES # (AUTO) 2.3 /CMM (0.8-4.8); LYMPHOCYTES % (AUTO) 17.4 % (20.0-44.0); MEAN CORPUSCULAR HEMOGLOBIN 32 PG (26.0-33.0); MEAN CORPUSCULAR HGB CONC 33 g/dl (31.0-36.0); MEAN CORPUSCULAR VOLUME 97 fL (82-100); MONOCYTES # (AUTO) 0.3 /CMM (0.1-1.30); MONOCYTES % (AUTO) 2.2 % (2.0-12.0); NEUTROPHILS # (AUTO) 10.5 /CMM (1.8-8.9); NEUTROPHILS % (AUTO) 79.3 % (43.0-81.0); PLATELET COUNT (AUTO) 775 /CMM (150-450); RDW COEFFICIENT OF VARIATION 16.1 (11.5-15.0); RED BLOOD CELL COUNT(AUTO) 3.41 MIL/uL (4.0-5.2); WHITE BLOOD COUNT (AUTO) 13.3 K/uL (4.3-11.0)
--- NOTE | 2017-10-04 06:34 | NUR ---
ms rn closing notes Pt in bed, resting comfortably, on room air, no respiratory distress noted. IV site intact, patent.Call light within reach. kept clean and comfortable, attended all needs. Bed locked in lowest position. Will continue to monitor accordingly.
[2017-10-04] MEDS: ACETYLCYSTEINE 10% SOLN 400 MG/4 ML VIAL NEB SCH (07:35)
--- NOTE | 2017-10-04 07:45 | NUR ---
RN OPENING NOTES RECEIVED PT. IN BED A&OX4. BREATHING UNLABORED, AND EVENLY ON ROOM AIR. PT. IS RECEIVING A BREATHING TREATMENT AT BEDSIDE. NO S/S OF ACUTE DISTRESS. IV ACCESS IS ON THE LEFT EXTERNAL JUGULAR VEIN INTACT. BED IS IN LOWEST, AND LOCKED POSITION. 2 SIDE RAILS UP, AND INSTRUCTED PT. TO USE CALL LIGHT FOR ASSISTANCE. ALL NEEDS MET. WILL CONTINUE TO ASSESS AND MONITOR.
[2017-10-04] MEDS: ALBUTEROL FS 2.5 MG/0.5 ML VIAL.NEB NEB SCH ×2 (07:46→11:29)
[2017-10-04 07:52] LABS: LYMPHOCYTES % (MANUAL) 6 % (16-48); MONOCYTES % (MANUAL) 8 % (0-11.0); NEUTROPHILS % (MANUAL) 86 (42-76)
[2017-10-04] MEDS: LEVOTHYROXINE SODIUM 125 MCG TABLET PO SCH (07:54)
[2017-10-04 08:00] VITALS: BP 185/98
[2017-10-04] MEDS: BOOST PLUS FOOD-VANILLA 237 ML BOX PO SCH ×2 (08:32→13:38)
--- NOTE | 2017-10-04 08:33 | NUR ---
RN NOTES PT.'S BLOOD PRESSURE WAS 185/98, RECHECKED PT.'S BP MANUALLY, NEW BP 120/62, PULSE 96.
[2017-10-04] MEDS: LACTOBACILLUS RHAMNOSUS GG 1 EACH CAP.SPRINK PO SCH (09:41)
[2017-10-04] MEDS: MULTIVITAMINS,THERAGRAN 1 UDTAB TABLET PO SCH (09:41)
[2017-10-04] MEDS: methylPREDNISolone SOD SUCC 40 MG/ML VIAL IV SCH (09:41)
[2017-10-04] MEDS ORDERED: LORA-259 PO (09:48)
[2017-10-04] MEDS ORDERED: PRED20TA PO (09:48)
[2017-10-04] MEDS ORDERED: AZIT1PAC9 PO (09:48)
--- NOTE | 2017-10-04 11:30 | NUR ---
RT NOTE: PATIENT REFUSED TREATMENT BECAUSE SHE IS GETTING READY TO LEAVE. NO DISTRESS NOTED. SHE WAS INSTRUCTED TO CALL RESP. DEPARTMENT WHEN SHE'S READY FOR A TREATMENT.
[2017-10-04] MEDS: LORAZEPAM 1 MG TABLET PO PRN (11:55)
--- NOTE | 2017-10-04 13:00 | NUR ---
RN NOTES PT. REFUSED SOLU MEDROL IVP 20 MG AT 1300. PT. WAS GIVEN RISKS AND BENEFITS AND VERBALIZED UNDERSTANDING.
--- NOTE | 2017-10-04 15:30 | NUR ---
MACHINE CEMENTER PT. LEFT IN MEDICALLY STABLE CONDITION. DISCHARGE INSTRUCTIONS PROVIDED WITH EDUCATIONS. PT. VERBALIZED UNDERSTANDING, AND SIGNED DISCHARGE PAPERS. BELONGINGS LIST WAS CHECKED AND SIGNED. ID BAND, AND IV WAS REMOVED WITHOUT COMPLICATIONS. PT. WAS GIVEN BUS TOKENS BEFORE DISCHARGE TO TAKE BUS HOME. ALL QUESTIONS ANSWERED. PT. LEFT WITH DOCTOR'S PRESCRIPTION.
== END 2017-10-04 15:34 | disposition home or self-care (01) | DRG 720 ==
LOC: ER 16:43 → MED 20:06
PROVIDERS: ADMIT Nurse Practitioner Acute Care; ATTEND Nurse Practitioner Acute Care
DX: A41.9 Sepsis, unspecified organism (principal); J15.9 Unspecified bacterial pneumonia; E87.1 Hypo-osmolality and hyponatremia; E03.9 Hypothyroidism, unspecified; J45.909 Unspecified asthma, uncomplicated; K59.00 Constipation, unspecified; Z91.041 Radiographic dye allergy status; D63.8 Anemia in other chronic diseases classified elsewhere; D47.3 Essential (hemorrhagic) thrombocythemia; M94.0 Chondrocostal junction syndrome [Tietze]; E86.1 Hypovolemia; J00 Acute nasopharyngitis [common cold]; F41.1 Generalized anxiety disorder
CPT/HCPCS: 36415; 71045-TC; 80048-TC; 80061-TC; 81000-TC; 82962-TC; 83605-TC; 83735-TC; 84100-TC; 84443-TC; 85025-TC; 87040-TC; 87070-TC; 87081-TC; 87086-TC; 87400; 94799-TC; A4606; J0456; J0696; J2270; J2405; J2920; J3475; J7030; J7060; Z7610